=== PATIENT | male | born 1950 | race Caucasian/White ===

== ENCOUNTER → 2020-12-11 | Outpatient (CLI) | payer MEDICARE, OTHER ==
[~2020-12-11] MED LIST: ASPIR 8181 MG PO; ATORVASTATIN CA40 MG PO; COL-RITE250 MG PO; ELAVIL 50 MG TA50 MG PO; FENOFIBRATE160 MG PO; IBU800 MG PO; NORVASC 5 MG TAB5 MG PO; OMEPRAZOLE40 MG PO; RANEXA500 MG PO; VITAMIN D250000 UNIT PO
== END ==
LOC: HEART 5 08:41
DX: I25.5 Ischemic cardiomyopathy (principal); R06.02 Shortness of breath; I51.7 Cardiomegaly; I50.89 Other heart failure; I50.30 Unspecified diastolic (congestive) heart failure
CPT/HCPCS: 93306

== ENCOUNTER → 2021-05-23 | Day surgery (SDC) | payer MEDICARE, OTHER ==
[~2021-05-23] MED LIST changes: +ENTRESTO 24 MG1 EACH PO; +TOPROL XL25 MG PO; +VITAMIN D375 MCG PO
== END | disposition home or self-care (01) ==
LOC: OR 05:59
DX: Z12.11 Encounter for screening for malignant neoplasm of colon (principal); D12.5 Benign neoplasm of sigmoid colon; I11.0 Hypertensive heart disease with heart failure; I25.10 Atherosclerotic heart disease of native coronary artery without angina pectoris; E78.5 Hyperlipidemia, unspecified; K21.9 Gastro-esophageal reflux disease without esophagitis; I49.5 Sick sinus syndrome; I50.22 Chronic systolic (congestive) heart failure; I25.5 Ischemic cardiomyopathy; Z20.822 Contact with and (suspected) exposure to COVID-19
CPT/HCPCS: J2704; J7030

== ENCOUNTER → 2022-06-11 | Outpatient (CLI) | payer MEDICARE | LOC: CT 07:35 | DX: C09.9 Malignant neoplasm of tonsil, unspecified (principal); R59.0 Localized enlarged lymph nodes | CPT/HCPCS: 36415; 70491; 71260; 82565; 84520; Q9967 ==